=== PATIENT | male | born 1965 | race Hispanic/Latino ===

== ENCOUNTER → 2018-09-22 | Day surgery (SDC) | payer OTHER ==
[2018-09-21 10:17] LABS: BASOPHILS # (AUTO) 0.1 (0.0-0.1); BASOPHILS % 0.8 % (0.0-1.0); EOSINOPHILS # (AUTO) 0.2 (0.0-0.4); EOSINOPHILS % 2.6 % (0.0-6.0); HEMOGLOBIN 15.9 g/dL (14.0-18.0); LYMPHOCYTES # (AUTO) 2.2 (1.0-3.2); LYMPHOCYTES % 33.2 % (18.0-39.1); MEAN CORPUSCULAR HEMOGLOBIN 32.3 pg (28-32); MEAN CORPUSCULAR HGB CONC 35.3 g/dL (31-35); MEAN CORPUSCULAR VOLUME 91.3 fL (81-99); MONOCYTES # (AUTO) 0.5 (0.2-0.8); MONOCYTES % 7.1 % (4.4-11.3); NEUTROPHILS # (AUTO) 3.7 (2.1-6.9); NEUTROPHILS % 56.1 % (38.7-80.0); PLATELET COUNT 186 x10e3/uL (140-360); RED BLOOD COUNT 4.93 x10e6/uL (4.3-5.7)
[2018-09-21 10:31] LABS: ANION GAP 11.5 mmol/L (8-16); BLOOD UREA NITROGEN 14 mg/dL (7-26); BUN/CREATININE RATIO 17 (6-25); CALCIUM 9.7 mg/dL (8.4-10.2); CARBON DIOXIDE 28 mmol/L (22-29); CHLORIDE 105 mmol/L (98-107); CREATININE, SERUM 0.83 mg/dL (0.72-1.25); EST GLOMERULAR FILTRATION RATE > 60 ML/MIN (60-); GLUCOSE 142 mg/dL (74-118); POTASSIUM 4.5 mmol/L (3.5-5.1); SODIUM 140 mmol/L (136-145)
--- NOTE | 2018-09-21 10:37 | Diagnostic Imaging Report ---
EXAMINATION: CHEST 2 VIEWS INDICATION: Pre-op. COMPARISON: None FINDINGS: TUBES and LINES: None. LUNGS: Lungs are moderately inflated. There is patchy bibasilar opacity, likely atelectasis. There is no evidence of lobar pneumonia or pulmonary edema. PLEURA: No pleural effusion or pneumothorax. HEART AND MEDIASTINUM: The cardiomediastinal silhouette is unremarkable. BONES AND SOFT TISSUES: No acute osseous abnormality. UPPER ABDOMEN: No free air under the diaphragm. IMPRESSION: No acute radiographic abnormality. Signed by: Dr. Chanel Kahn MD on 09/21/2018 10:34 AM
[~2018-09-22] MED LIST: BUPIVACAINE 0.25% 30ML SDV INJ ONE; CEFTRIAXONE SOD 1 GM/NS 50 ML 50 ML IV ONE; DEXAMETHASONE SOD PHOS INJ 4 MG/ML VIAL ONE; FENTANYL CITRATE/PF 100MCG/2 ML INJ ONE; LACTATED RINGER'S 1,000 ML ONE; LIDOCAINE HCL 2% LOCAL INJ 5 ML SDV VIAL INJ ONE; MIDAZOLAM HCL 2 MG/2 ML VIAL ONE; MULTIVITAMINS1 EAC7 PO; ONDANSETRON HCL INJ 2MG/ML 2ML 2 MG/ML VIAL ONE; PROPOFOL IV EMULSION 10 MG/ML 20 ML VIAL ONE; SEVOFLURANE INHAL SOLN 250 ML PEN BTL ONE
--- OUTSIDE RECORDS SUMMARY | 2018-09-22 08:10 | XMS REPORT | Clinical Summary ---
Author Author [facility] Address Unknown Phone Unavailable Care Team Providers Care Fiberglass Autobody Repairer Name Role Phone Dory Awad MD PCP Allergies No Known Allergies Medications End Date Status Medication Sig Dispensed Refills Start Date Active naproxen sodium (ALEVE Take by mouth 0 ORAL) as needed. Active meloxicam (MOBIC) 15 mg 1 tab PO 30 tablet 0 tablet every morning 9 with food 05/07/2018 methylPREDNISolone follow 21 tablet 0 (MEDROL, JERO,) 4 mg package 8 tablet directions, sig 1 PO as per directions until pack complete Active Problems Problem Noted Date Lumbar radiculopathy 05/02/2018 Sciatica, left side 05/02/2018 Prostatitis, chronic 05/01/2018 Elevated PSA 05/01/2018 Encounters Care Team Description Date Type Specialty Orville Lima MD Chronic bilateral low back pain with bilateral sciatica (Primary Dx); DDD (degenerative disc disease), lumbosacral; Neck pain; DDD (degenerative disc disease), cervical; Strain of neck muscle, initial encounter; Strain of lumbar region, initial encounter 06/09/2018 Office Visit Orthopedic Surgery Ilya Calvin MD Prostatitis, chronic (Primary Dx); Elevated PSA; Lumbar radiculopathy; Sciatica, left side 05/02/2018 Office Visit Urology Maryuri Castillo MD Breast mass, right (Primary Dx) 10/12/2017 Transcribe Radiology Orders after 09/21/2017 Family History Medical History Relation Name Comments Stroke Father Diabetes Mother Hypertension Mother Hypertension Sister Relation Name Status Comments Father Mother Alive Sister Social History Date Tobacco Use Types Packs/Day Years Used Never Smoker Smokeless Tobacco: Never Used Sex Assigned at Date Recorded Not on file Industry Job Start Date Occupation Not on file Not on file Not on file Travel End Travel History Travel Start No recent travel history available. Last Filed Vital Signs Time Taken Vital Sign Reading - Blood Pressure - - Pulse - - Temperature - - Respiratory Rate - - Oxygen Saturation - - Inhaled Oxygen - Concentration 06/09/2018 3:14 PM DISCOVERY MANAGER Weight 105 kg (231 lb) - Height - - Body Mass Index - Plan of Treatment Health Maintenance Due Date Last Done Comments COLON CANCER SCREENING 2013 SHINGLES VACCINES (#1) 2013 INFLUENZA VACCINE 12/15/2018 Procedures Comments Procedure Name Priority Date/Time Associated Diagnosis XR CERVICAL SPINE Routine 06/09/2018 Neck pain COMPLETE 3:31 PM DISCOVERY MANAGER XR LUMBAR SPINE COMPLETE Routine 06/09/2018 Chronic bilateral low 4+ VW 3:31 PM DISCOVERY MANAGER back pain with bilateral sciatica PSA, TOTAL AND FREE Routine 05/05/2018 Prostatitis, chronic 10:26 AM DISCOVERY MANAGER Elevated PSA after 09/21/2017 Results * XR Lumbar Spine Complete 4+ Vw (06/09/2018 3:31 PM DISCOVERY MANAGER) Narrative Performed At [facility], lateral and oblique x-rays of the lumbar spine shows mild anterior vertebral body endplate spurring.The patient has minimal facet narrowing at the lower levels in the lumbar spine. Performing Organization Address [facility] Phone Number [facility] [address] [place] [address] * XR Cervical Spine Complete (06/09/2018 3:31 PM DISCOVERY MANAGER) Narrative Performed At [facility], lateral and oblique x-rays of the cervical spine shows narrowing of the interspace between C5-6 and C6-7.There is also anterior vertebral body endplate spurring. Performing Organization Address [facility] Phone Number [facility] [address] [place] [address] * PSA, total and free (05/05/2018 10:26 AM DISCOVERY MANAGER) PSA 2.3 0.0 - 4.0 ng/mL [facility] Comment: Love ECLIA methodology. According to the [employer], Serum PSA should decrease and remain at undetectable levels after radical prostatectomy. The AUA defines biochemical recurrence as an initial PSA value 0.2 ng/mL or greater followed by a subsequent confirmatory PSA value 0.2 ng/mL or greater. Values obtained with different assay methods or kits cannot be used interchangeably. Results cannot be interpreted as absolute evidence of the presence or absence of malignant disease. PSA, free 0.35Comment: Love ECLIA N/A ng/mL [facility] methodology. PSA, free percent 15.2 % [facility] Comment: The table below lists the probability of prostate cancer for men with non-suspicious AJ results and total PSA between 4 and 10 ng/mL, by patient age (Tahir et al, COLE 1998, 279:1542). % Free PSA 50-64 yr65-75 yr 0.00-10.00% 56% 55% 10.01-15.00%24 % 35% 15.01-20.00%17 % 23% 20.01-25.00%10 % 20% >25.00% 5% 9% Please note:Tahir et al did not make specific re commendations regarding the use of pe rcent free PSA for any other population of men. Specimen Blood Narrative Performed At Performed at: - [facility] [address], [id number] Gauger Delivery: Rios Moya MD, Phone:[phone] Performing Organization Address City/State/Zipcode Phone Number [facility] after 09/21/2017 Insurance Payer Benefit Subscriber ID Type Phone Address Plan / Group CIGNA CIGNA OPEN xxxxxxxxx HMO ACCESS/NET WORK Advance Directives Patient has advance care planning documents on file. For more information, shiva león contact: Ankit Pedersen [address] [place] [address]
--- OUTSIDE RECORDS SUMMARY | 2018-09-22 08:10 | XMS REPORT | Clinical Summary ---
Author Author [facility] Organization [facility] Address Unknown Phone Unavailable Care Team Providers Care Medical Esthetician Name Role Phone PCP Unavailable Allergies No Known Allergies Medications Not on file Active Problems Problem Noted Date Chronic low back pain 03/18/2018 Encounters Care Team Description Date Type Specialty Jese Silverio MD Testicular pain (Primary Dx); Chronic left-sided low back pain without sciatica 03/18/2018 Emergency Emergency Medicine after 09/21/2017 Social History Date Tobacco Use Types Packs/Day Years Used Never Assessed Sex Assigned at Date Recorded Not on file Industry Job Start Date Occupation Not on file Not on file Not on file Travel End Travel History Travel Start No recent travel history available. Last Filed Vital Signs Time Taken Vital Sign Reading 03/18/2018 12:36 PM CDT Blood Pressure 158/84 03/18/2018 12:36 PM CDT Pulse 80 03/18/2018 12:36 PM CDT Temperature 36.7 C (98 F) 03/18/2018 12:36 PM CDT Respiratory Rate 18 03/18/2018 12:36 PM CDT Oxygen Saturation 98% - Inhaled Oxygen - Concentration 03/18/2018 11:24 AM CDT Weight 109.3 kg (240 lb 14.4 oz) - Height - - Body Mass Index - Plan of Treatment Health Maintenance Due Date Last Done Comments Colorectal Cancer Scrn 2013 Annual (FIT/FOBT) Age 50 to 75 IMM Influenza Seasonal 02/14/2019Feb to July (>/=19 yrs) Results Not on fileafter 09/21/2017 Insurance Type Payer Benefit Subscriber ID Effective Phone Address Plan / Dates Group BRINDA PARRY xxxxxxxxx 2016-P [phone] [id number] [place] [phone]
--- OUTSIDE RECORDS SUMMARY | 2018-09-22 08:10 | XMS REPORT ---
Author Author [facility] Address Unknown Phone Unavailable Care Team Providers Care Presentation Specialist Name Role Phone Pieter WYNN Unavailable Unavailable Problems This patient has no known problems. Allergies, Adverse Reactions, Alerts This patient has no known allergies or adverse reactions. Medications This patient has no known medications. Encounters Start Date/Time End Date/Time Encounter Type Admission Type Attending [facility] Facility Care Department Encounter ID 2018-03-18 11:56:41 2018-03-18 11:56:41 Emergency [facility] [address] MED [id number] Results Test Description Test Time Test Comments Text Results Atomic Results Result Comments CHEST 2 VIEWS 2018-09-21 10:31:[address] [address] Patient Name: SHAYAN PARKER MR #: [id number] : 1965 Age/Sex: 53/M Req #: [id number] Adm Physician: Ordered by: ELDER WYNN MD Report #: [id number] Location: OR Room/Bed: Procedure: [id number] DX/CHEST 2 VIEWS Exam Date: 09/21/18 Exam Time: 1010 REPORT STATUS: Signed EXAMINATION: CHEST 2 VIEWS INDICATION: Pre-op. COMPARISON: None FINDINGS: TUBES and LINES: None. LUNGS: Lungs are moderately inflated. There is patchy bibasilar opacity, likely atelectasis. There is no evidence of lobar pneumonia or pulmonary edema. PLEURA: No pleural effusion or pneumothorax. HEART AND MEDIASTINUM: The cardiomediastinal silhouette is unremarkable. BONES AND SOFT TISSUES: No acute osseous abnormality. UPPER ABDOMEN: No free air under the diaphragm. IMPRESSION: No acute radiographic abnormality. Signed by: Dr. Markus Worrell MD on 09/21/2018 10:34 AM Dictated By: MARKUS WORRELL MD [id number] Transcribed By: SHERRELL on 09/21/18 1034 COPY TO: ELDER WYNN MD
[2018-09-22 12:55] VITALS: BP 141/95
--- NOTE | 2018-10-09 11:49 | Operative Report ---
DATE OF PROCEDURE: 09/22/2018 SURGEON: Mike Mead MD PREOPERATIVE DIAGNOSIS: Bilateral chronic epididymitis. POSTOPERATIVE DIAGNOSIS: Bilateral chronic epididymitis. OPERATIVE PROCEDURE PERFORMED: Bilateral epididymectomy. ANESTHESIA: General anesthesia. ESTIMATED BLOOD LOSS: Minimal. INDICATIONS: Mr. Brendan Alfred is a 53-year-old gentleman with a long history of chronic recurrent epididymitis for which he is still on conservative management. He now presents for definitive surgical management of this problem. PROCEDURE IN DETAIL: The patient was brought into the operating room, placed in supine position and after administration of general anesthesia was prepped and draped in usual sterile fashion. A horizontal incision was made over the left hemiscrotum and dissection was carried out through the layers of the scrotum. The tunica vaginalis was entered and a small amount of fluid was removed. The testicle was examined in its entirety. The testicle was palpably normal. Appendix testis and appendix epididymis were both removed with electrocautery device. There was moderate induration of the left epididymis with several cysts noted. There was also significant engorgement of the veins on this side. Using a combination of blunt and sharp dissection, the epididymis was carefully dissected from its surrounding structures taking great care not to injure the blood supply to the testicle. Portion of the vas deferens was also removed. This was ultimately sent to pathology for microscopic analysis. Once adequate hemostasis was secured using electrocautery device and chromic sutures, the cord was tacked to the tunica albuginea using an interrupted chromic stitch. The testicle was then returned to its position in the left hemiscrotum and a quarter-inch Ward drain was left on exiting the inferior portion of the hemiscrotum. The drain was tacked to the skin using a chromic suture. The left hemiscrotum was then closed in layers, the skin being closed with a running baseball stitch. A similar procedure was performed on the contralateral side. Again, a horizontal incision was made over, this time, the right hemiscrotum and dissection was carried out to the layers of the scrotum. The tunica vaginalis was entered and the testicle removed. There was again moderate induration noted of the epididymis on this side with no palpable mass or obvious cyst seen on this side. Again, the appendix epididymis and appendix testis were removed using electrocautery device. Again, the epididymis was carefully dissected from the surrounding structures taking great care to minimize injury to the blood supply to the testicle. The epididymis and the proximal vas were then removed and sent to pathology for microscopic analysis. The cut edges of the vas were fulgurated with the electrocautery device. Once adequate hemostasis was secured, the testicle was returned to its normal anatomical position in the hemiscrotum. There was minimal bleeding on this side and moderate attempt was made to ensure hemostasis from the scrotal wall. The scrotum was then closed in layers, the skin again being closed with a running baseball stitch. Both wounds were then cleaned and covered with Telfa with fluffs and a scrotal support. Anesthesia was reversed and the patient was transferred to a bed and taken to the postanesthesia care unit in good condition. Of note, the needle and instrument count were correct at the conclusion of the case. MD RAMYA Paul/NISSA /[id number]
== END | disposition home or self-care (01) ==
LOC: OR 08:06
PROVIDERS: ATTEND Urology
DX: N45.1 Epididymitis (principal); N41.1 Chronic prostatitis; N32.0 Bladder-neck obstruction; R53.1 Weakness; M54.9 Dorsalgia, unspecified; M54.2 Cervicalgia; K21.9 Gastro-esophageal reflux disease without esophagitis; Z01.810 Encounter for preprocedural cardiovascular examination; Z01.812 Encounter for preprocedural laboratory examination; Z01.818 Encounter for other preprocedural examination; Z68.30 Body mass index [BMI] 30.0-30.9, adult
CPT/HCPCS: 36415; 54861; 71046; 80048; 85025; 88305; 93005; J0696; J1100; J2001; J2250; J2405; J2704; J7121